=== PATIENT | female | born 2000 | race Caucasian/White ===

== ENCOUNTER 2021-09-28 18:18 | Emergency (ER) | payer MEDICAID, SELFPAY ==
[2021-09-28 18:19] VITALS: BP 124/65; PULSE 121; RESP 16; TEMP 36.8; O2SAT 100; BMI 29.2
[2021-09-28 18:32] VITALS: O2SAT 100
[2021-09-28 18:48] VITALS: BP 116/72; PULSE 94; RESP 18; O2SAT 99
--- NOTE | 2021-10-06 03:57 | ED.VIS.DYS ---
HPI History of Present Illness Chief Complaint: Shortness of Breath Informant: patient Narrative Narrative: Delayed note patient seen on September 28, 2021. Home COVID test + September 26. Symptomatic same day. Reports dyspnea congestion. Headache. No vomiting or diarrhea. No loss of taste or smell. No further complaints. [facility] Medical History Hypertension Home Medications nirmatrelvir 300 mg (150 mg x2)-ritonavir 100 mg tablet,dose pack(EUA) (Paxlovid) See Rx Instructions PO .COMPLEX #30 tabs 09/28/21 [Rx Last Taken Unknown] propranolol 10 mg tablet 10 mg PO DAILY 09/28/21 [History Last Taken Unknown] Allergy/AdvReac Type Severity Reaction Status Date / Time azithromycin AdvReac Anaphylaxis Verified 09/28/21 18:37 ranitidine [From Zantac] AdvReac Anaphylaxis Verified 09/28/21 18:37 Surgical History Hx of tonsillectomy Social History Smoking Status: Never smoker ROS ROS ED Constitutional Constitutional ED: Denies chills, fever(s) or sweats Eyes Eyes: Denies change in vision ENT ENT ED: Denies dysphagia or sore throat Cardiovascular Cardiovascular: Denies chest pain, leg edema, palpitations or racing heartbeat Respiratory/Chest Respiratory/Chest: Reports cough and dyspnea; Denies dyspnea on exertion Gastrointestinal Gastrointestinal: Denies abdominal pain, diarrhea, nausea or vomiting Genitourinary Genitourinary ED: Denies dysuria, hematuria or urinary frequency Musculoskeletal Musculoskeletal: Denies back pain, extremity pain or neck pain Integumentary Denies rash or wounds Neurologic Neurologic: Reports headache(s); Denies paresthesias or weakness EXAM Physical Exam Const Positive well nourished and well developed General Appearance ED: well developed and NAD HEENT Reports moist mucous membranes normocephalic and atraumatic Eyes PERRL, EOMs intact bilaterally and conjunctivae normal General Eye ED: Yes normal appearance of both eyes Neck no lymphadenopathy and supple General: Negative for tenderness Chest Wall Chest: Negative for tenderness Resp normal respiratory effort and normal air movement Effort and Inspection: symmetric chest movement; Negative for respiratory distress Cardio regular rate, regular rhythm and no murmurs Peripheral Pulses: pulses 2+ throughout GI normal to inspection, nondistended, normoactive bowel sounds and non-tender Palpation: Negative for guarding or rebound tenderness present Back/Spine no CVA tenderness and no thoracic nor lumbar tenderness Extremity normal to inspection General Extremety ED: Negative for edema or tenderness General Extremity: Negative for edema Neuro oriented x3 and no sensory deficits noted Sensorium / Orientation: awake and alert Skin no rashes or lesions noted and no wounds MDM MDM MDM Narrative Medical decision making narrative: Patient afebrile tachycardic on arrival normal on my exam. 100% on room air. Home COVID test 2 days ago. Symptomatic with a 5-day discussed treatment with Paxlovid for which she agrees. 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 All questions were answered. Discharge Plan Triage Chief Complaint: Shortness of Breath ED Provider: Miguel A Boykin Dx/Rx/DC Orders Clinical Impression: COVID-19 virus infection, Viral illness, Cough, Headache Instructions: Coronavirus Disease 2019 (COVID-19): Caring for Yourself or Others Prescriptions: New Paxlovid (EUA) 300 mg (150 mg x 2)-100 mg tablets,dose pack See Rx Instructions .ROUTE .COMPLEX Qty: 30 0RF Rx Instructions: take TWO 150 mg tablets of nirmatrelvir with ONE 100 mg tablet of ritonavir twice daily for 5 days No Action propranolol 10 mg Tablet 10 mg PO DAILY Primary Care Provider: Gerardo Pierre Referrals: Gerardo Pierre DO [Primary Care Provider] - 5-7 Days Activity Restrictions/Additional Instructions: Take medication as prescribed. Continue monitor pulse ox if worsening breathing with pulse ox less than 88%, return for reevaluation. Disposition Disposition: Home, Self Care Discharge Date/Time: 09/28/21 19:05
== END 2021-09-28 19:05 | disposition home or self-care (01) ==
PROVIDERS: Emergency Provider Emergency Medicine; Visit Provider Emergency Medicine
DX: U07.1 COVID-19 (principal); I10 Essential (primary) hypertension; Z79.899 Other long term (current) drug therapy
CPT/HCPCS: 99282

== ENCOUNTER 2021-11-30 16:15 | Emergency (ER) | payer MEDICAID, SELFPAY ==
[2021-11-30 16:15] VITALS: BP 134/78; PULSE 78; RESP 16; TEMP 36.6; O2SAT 98; BMI 29.4
[2021-11-30 16:32] VITALS: RESP 18
--- NOTE | 2021-11-30 16:32 | EX.ED.VIS.UR ---
HPI HPI - URI History of Present Illness Chief Complaint: Ear Problem Detail of Chief Complaint: Bilateral earaches with decreased hearing. Informant: patient Onset/Context/Timing Onset: Days Context: Gradual Onset Timing: Continuous Current Severity: Mild Maximum Severity: Mild Associated Symptoms Associated Symptoms: Negative for Myalgias, Nausea, Vomiting, Nonproductive cough or Hemoptysis Narrative Narrative: 21-year-old female with diagnosis of otitis media has been on Augmentin 875 twice daily since 27 November. Said she is not improving. Has decreased hearing. Denies sore throat. Prior tonsillectomy. Low-grade fever 100.1. No vomiting or diarrhea. Prior similar symptoms: Yes Recent Illness/Hospitalization: No ROS ROS ED ROS Narrative Earaches. Low-grade fever. Review of Systems ROS Unobtainable: Denies due to encephalopathy Constitutional Constitutional ED: Reports fever(s); Denies chills Eyes Eyes: Denies blurry vision ENT ENT ED: Reports ear pain Cardiovascular Cardiovascular: Denies chest pain Respiratory/Chest Respiratory/Chest: Denies cough or dyspnea Gastrointestinal Gastrointestinal: Denies abdominal pain Genitourinary Genitourinary ED: Denies dysuria Musculoskeletal Musculoskeletal: Denies arthralgias Integumentary Denies abscess Neurologic Neurologic: Denies headache(s) Psychiatric Psychiatric: Denies anxiety Endocrine Endocrinology: Denies cold intolerance Hematologic/Lymphatic Hematologic/Lymphatic: Denies easy bleeding Allergic/Immunologic Allergic/Immunologic ED: Denies mouth swelling or tongue swelling PFSH PFS Medical History Hypertension Home Medications nirmatrelvir 300 mg (150 mg x2)-ritonavir 100 mg tablet,dose pack(EUA) (Paxlovid) See Rx Instructions PO .COMPLEX #30 tabs 09/28/21 [Rx Last Taken Unknown] propranolol 10 mg tablet 10 mg PO DAILY 09/28/21 [History Last Taken Unknown] Allergy/AdvReac Type Severity Reaction Status Date / Time azithromycin AdvReac Anaphylaxis Verified 11/30/21 16:27 ranitidine [From Zantac] AdvReac Anaphylaxis Verified 11/30/21 16:27 Surgical History Hx of tonsillectomy Hx of tubal ligation Social History Smoking Status: Never smoker EXAM Physical Exam Narrative Exam Narrative: 21-year-old female no acute distress. Vital signs stable afebrile. 2 small children in the room. H EENT exam posterior pharynx normal. Moist and pink. TMs erythematous and dull bilaterally. No significant wax. Canals normal. No perforation. Neck nontender no lymphadenopathy. Lungs clear. Heart regular rhythm. Otherwise exam normal. Const Vital Signs: 11/30/21 16:15 Temperature 97.8 F Temperature Source Temporal Pulse Rate 78 Respiratory Rate 16 Blood Pressure 134/78 H Blood Pressure Mean 96 Pulse Ox 98 Oxygen Delivery Method Room Air Positive well nourished and well developed; Negative for obese, cachectic or contractures General Appearance ED: well developed and NAD; Negative for cachectic, contractures, cyanotic or diaphoretic Nutritional Appearance: Negative for cachectic or obese HEENT Reports moist mucous membranes; Denies dry mucous membranes normocephalic and atraumatic; Negative for scalp tenderness Face and Sinus: Negative for sinus tenderness or maxillary instability Mouth ED: No dry mucous membranes Mouth: No dry mucous membranes Teeth and Gingiva: Negative for caries Throat: posterior oropharynx normal; Negative for tonsils abnormal Eyes PERRL and EOMs intact bilaterally General Eye ED: Negative for pale conjunctiva or scleral icterus Neck no lymphadenopathy, supple, no meningeal signs and no JVD General: Negative for anterior neck swelling or lymphadenopathy Resp normal respiratory effort and clear to auscultation bilaterally Effort and Inspection: Negative for retractions Auscultation: Negative for rales, rhonchi or wheezes Cardio S1 normal heart sound, S2 normal heart sound and no murmurs Rate: regular rate Rhythm: regular rhythm GI non-tender, non-distended and no masses Inspection: Negative for abdominal distention Auscultation: normoactive bowel sounds Palpation: soft; Negative for tender or guarding Percussion: Negative for other Back/Spine no CVA tenderness and normal ROM General Back: Negative for CVA tenderness Cervical Spine: Negative for cervical spine tenderness Thoracic Spine / Upper Back: Negative for thoracic spinal tenderness Lumbar Spine / Lower Back: Negative for lumbar spinal tenderness Sacrum: Negative for tenderness Extremity normal to inspection and full ROM General Extremety ED: Negative for cyanosis or tenderness General Extremity: Negative for cyanosis Neuro oriented x3 Sensorium / Orientation: alert, oriented to person and oriented to place; Negative for oriented to time, orientation impaired, lethargic or stuporous Psych mental status grossly normal Appearance: Negative for other Attitude: No agitated Mood & Affect: Negative for depressed or anxious Skin General Skin Exam: Negative for jaundice Lesions: no lesions Rashes: no rashes Trauma: Negative for abrasion MDM MDM MDM Narrative Medical decision making narrative: 21-year-old healthy female bilateral otitis media. Has been on Augmentin 875 twice a day for 3 days. She does have ear infections there is no perforation. No cerumen impaction. I explained 's only been 3 days of give the antibiotic longer before I would change it. She is comfortable with that plan. I told her if is not improving she can call on Thursday afternoon and I could change antibiotic then. Discharge Plan Triage Chief Complaint: Ear Problem ED Provider: Matteo Candelaria Dx/Rx/DC Orders Clinical Impression: Otitis media Instructions: ED Otitis Media Antibiotic ... Prescriptions: No Action propranolol 10 mg Tablet 10 mg PO DAILY Paxlovid (EUA) 300 mg (150 mg x 2)-100 mg tablets,dose pack See Rx Instructions .ROUTE .COMPLEX Qty: 30 0RF Rx Instructions: take TWO 150 mg tablets of nirmatrelvir with ONE 100 mg tablet of ritonavir twice daily for 5 days Primary Care Provider: Care Physician,No Primary Referrals: Gerardo Pierre, DO [Non-Staff] - 3-5 Days if not improving Activity Restrictions/Additional Instructions: Tylenol and Motrin for pain. Continue your antibiotic the Augmentin as prescribed twice a day. If not improving by Thursday call the ER at [phone]. I will be working Thursday afternoon after 3. I can always call in a different prescription at that time. I would give your current antibiotic at least 2-3 more days and you should start getting improvement. As the infection gets better the pain will get better as well your hearing. Disposition Disposition: Home, Self Care
== END 2021-11-30 16:39 | disposition home or self-care (01) ==
PROVIDERS: Emergency Provider Emergency Medicine; Visit Provider Emergency Medicine
DX: H66.93 Otitis media, unspecified, bilateral (principal); I10 Essential (primary) hypertension; Z79.899 Other long term (current) drug therapy
CPT/HCPCS: 99282

== ENCOUNTER 2022-02-03 08:46 | Emergency (ER) | payer MEDICAID, SELFPAY ==
[2022-02-03 08:47] VITALS: BP 119/66; PULSE 107; RESP 16; TEMP 36.6; O2SAT 97; BMI 29.2
--- NOTE | 2022-02-03 09:15 | EDS_ITS ---
HPI History of Present Illness Chief Complaint: General Illness Informant: patient Onset/Context/Timing Onset: Days (3) Context: Gradual Onset Timing: Continuous Quality: Aching Location: Head neck back Worsened by: Movement Relieved by: Nothing Narrative Narrative: Patient presents with cough and congestion that has been getting worse over the past 3 days. Patient admits to a headache and sore throat. Patient also complains of pain in her neck and back. Patient describes it as aching. Patient states it is diffuse from her head to her lower back. Patient states it is worse with certain movements. Patient admits to general myalgias. Patient admits to a sore throat. Patient admits to nausea but denies any vomiting. Patient denies any fevers or chills. Patient states her temperature last night was 99. PFSH [facility] Medical History Hypertension Home Medications propranolol 10 mg tablet 10 mg PO DAILY 09/28/21 [History Last Taken Unknown] Allergy/AdvReac Type Severity Reaction Status Date / Time azithromycin AdvReac Anaphylaxis Verified 02/03/22 08:51 ranitidine [From Zantac] AdvReac Anaphylaxis Verified 02/03/22 08:51 Surgical History Hx of tonsillectomy Hx of tubal ligation Social History Smoking Status: Never smoker ROS ROS ED Constitutional Constitutional ED: Denies chills or fever(s) Eyes Eyes: Denies blurry vision or change in vision ENT ENT ED: Reports sore throat; Denies rhinorrhea Cardiovascular Cardiovascular: Denies chest pain or palpitations Respiratory/Chest Respiratory/Chest: Denies cough or dyspnea Gastrointestinal Gastrointestinal: Reports nausea; Denies vomiting Genitourinary Genitourinary ED: Denies dysuria or hematuria Musculoskeletal Musculoskeletal: Reports back pain and neck pain Integumentary Denies abscess or rash Neurologic Neurologic: Reports headache(s); Denies weakness Allergic/Immunologic Allergic/Immunologic ED: Denies mouth swelling or urticaria EXAM Physical Exam Const Vital Signs: 02/03/22 08:47 02/03/22 09:00 Temperature 97.9 F Temperature Source Temporal Pulse Rate 107 H Respiratory Rate 16 Respiratory Effort Normal Non-Labored Respiratory Pattern Normal Blood Pressure 119/66 Blood Pressure Mean 83 Pulse Ox 97 Oxygen Delivery Method Room Air Positive well nourished and well developed General Appearance ED: well developed and NAD HEENT Reports moist mucous membranes Neck supple and no JVD Resp normal respiratory effort and clear to auscultation bilaterally Cardio regular rate, regular rhythm and no murmurs GI normal to inspection, nondistended, normoactive bowel sounds and non-tender Palpation: soft Extremity normal to inspection General Extremety ED: Negative for edema or tenderness General Extremity: Negative for edema Neuro oriented x3, CN's II-XII intact bilaterally and no sensory deficits noted Sensorium / Orientation: alert Motor Exam: strength 5/5 throughout Psych mental status grossly normal Skin no rashes or lesions noted MDM MDM MDM Narrative Medical decision making narrative: Patient was given a dose of Tylenol here. COVID-19 rapid antigen was obtained and was negative. Influenza A and influenza B rapid antigens were obtained and were negative. Patient was advised that this is most likely a viral upper respiratory infection. Patient was instructed to drink plenty of fluids. Patient was instructed to continue Tylenol and ibuprofen as needed for pain or fevers. Patient was instructed to follow-up with her primary care physician in 5 to 7 days. Patient understood and was agreeable with the plan. All questions were answered. Discharge Plan Triage Chief Complaint: General Illness ED Provider: Ace Richardson Dx/Rx/DC Orders Clinical Impression: Viral illness Instructions: ED Viral Syndrome (Adult) Prescriptions: No Action propranolol 10 mg Tablet 10 mg PO DAILY Primary Care Provider: Care Physician,No Primary Referrals: Morro Watkins MD [Med Staff - Active Staff] - 5-7 Days Care Physician,No Primary [Primary Care Provider] - Disposition Disposition: Home, Self Care Discharge Date/Time: 02/03/22 09:57
[2022-02-03] MEDS: Acetaminophen 500 MG Tablet 1000 MG PO (09:33)
== END 2022-02-03 09:57 | disposition home or self-care (01) ==
PROVIDERS: Emergency Provider Emergency Medicine; Visit Provider Emergency Medicine
DX: B34.9 Viral infection, unspecified (principal); I10 Essential (primary) hypertension; R51.9 Headache, unspecified; R11.0 Nausea; J02.9 Acute pharyngitis, unspecified
CPT/HCPCS: 87428; 99283

== ENCOUNTER 2022-04-25 23:42 | Emergency (ER) | payer OTHER, MEDICAID, SELFPAY ==
[2022-04-25 23:42] VITALS: BP 146/95; BP 146/97; PULSE 74; PULSE 94; RESP 15; RESP 16; TEMP 37.1; O2SAT 99
[2022-04-26 00:21] VITALS: BMI 31.1
[2022-04-26 01:08] LABS: Mucous, Urine 0 SEEN /hpf (<or=2+); Red Blood Cells-Urine 0 SEEN /hpf (0-5)
[2022-04-26 01:09] LABS: Absolute Neutrophil Count 6.3 X10^3/uL (2.0-7.7); Basophil# 0.05 X10^3/uL; Basophil% 0.5 % (0-1); Eosinophil# 0.35 X10^3/uL; Eosinophils% 3.7 % (0-5); Hematocrit 40.3 % (37-47); Hemoglobin 12.8 g/dL (12.0-15.0); Lymphocyte % 18.8 % (19-41); Mean Corp Hgb Conc 31.8 g/dL (32-36); Mean Corpuscular Hgb 26.4 pg (27.0-32.0); Mean Corpuscular Volume 83.3 fL (81-99); Mean Platelet Vol. 10.4 fl (6.2-12.0); Monocyte# 1.06 X10^3/uL; Monocyte% 11.1 % (0-10); NRBC Flagged by Analyzer 0 % (0-5); Neutrophil # 6.25 X10^3/uL (2.7-7.7); Neutrophil % 65.5 % (47-70); Platelet Count 315 K/mm3 (150-450); RBC Distribution Width CV 13.9 % (11.6-14.6); RBC Distribution Width SD 42.1 fl (35.1-43.9); Red Blood Count 4.84 M/mm3 (4.2-5.4); White Blood Count 9.6 K/mm3 (4.4-11.0)
[2022-04-26 01:14] LABS: Color, Urine Yellow (Yellow); Glucose, Dipstick Normal (Normal); Ketone-Dipstick Negative (Negative); Leukocyte Esterase-Dipstick Negative /ul (Negative); Nitrite-Dipstick Negative (Negative); Occult Blood-Urine Negative /ul (Negative); Protein-Dipstick 30 mg/dl (Negative); Urine Bilirubin Dipstick Negative (Negative); Urine Clarity Clear (Clear); Urine Urobilinogen 1 mg/dl (Normal)
--- NOTE | 2022-04-26 01:15 | ED.VIS.GI ---
HPI HPI - GI History of Present Illness Chief Complaint: Abd Pain Informant: patient Abdominal Pain/Flank Pain Onset: Days Context: Gradual Onset Timing: Continuous Quality: Aching Location: Diffuse Current Severity: Mild Maximum Severity: Mild Nausea/Vomiting/Emesis GI Symptom: Negative for Nausea or Vomiting Diarrhea/Melena/Hematochezia GI Symptom: Positive for Diarrhea Onset: Days Stool Quality: Positive for Loose Severity: Mild Associated Symptoms Associated Symptoms: Negative for Dysuria, Frequency, Hematuria or Urgency Narrative Narrative: 21-year-old female G3, P2 Ab1 with having a miscarriage. Has had prior tubal ligation. Has migraine headaches, reflux chronic abdominal pain and diarrhea which is currently being worked up and evaluated by a GI specialist with the [facility]. States today she has discomfort all over. She denies nausea or vomiting. No dysuria. No vaginal bleeding. She is on control pills and has had a prior tubal ligation. States this pain has been ongoing for 2 years and is not found a specific cause. She has had a colonoscopy. She had a CAT scan done at another facility a month ago which was unremarkable. She denies any fever. Prior similar symptoms: Yes Recent Illness/Hospitalization: No PFSH PFSH Medical History Hypertension no medical history Home Medications propranolol 10 mg tablet 10 mg PO DAILY 09/28/21 [History Last Taken Unknown] dicyclomine 20 mg tablet 20 mg PO TID 04/26/22 [History Last Taken Unknown] famotidine 40 mg tablet 40 mg PO DAILY 04/26/22 [History Last Taken Unknown] mirtazapine 30 mg tablet 30 mg PO QHS 04/26/22 [History Last Taken Unknown] omeprazole 40 mg capsule,delayed release 40 mg PO DAILY 04/26/22 [History Last Taken Unknown] Allergy/AdvReac Type Severity Reaction Status Date / Time azithromycin AdvReac Anaphylaxis Verified 04/25/22 23:46 ranitidine [From Zantac] AdvReac Anaphylaxis Verified 04/25/22 23:46 Surgical History Hx of tonsillectomy Hx of tubal ligation Social History Smoking Status: Never smoker ROS ROS ED ROS Narrative Abdominal discomfort. Chronic diarrhea. Review of Systems ROS Unobtainable: Denies due to encephalopathy Constitutional Constitutional ED: Denies chills or fever(s) ENT ENT ED: Denies ear pain Cardiovascular Cardiovascular: Denies chest pain Respiratory/Chest Respiratory/Chest: Denies cough Gastrointestinal Gastrointestinal: Reports abdominal pain and diarrhea; Denies constipation, melena, nausea or vomiting Genitourinary Genitourinary ED: Denies dysuria or hematuria Musculoskeletal Musculoskeletal: Denies arthralgias Integumentary Denies abscess Neurologic Neurologic: Denies headache(s) Psychiatric Psychiatric: Denies anxiety Endocrine Endocrinology: Denies polydipsia Hematologic/Lymphatic Hematologic/Lymphatic: Denies easy bleeding Allergic/Immunologic Allergic/Immunologic ED: Denies mouth swelling or tongue swelling EXAM Physical Exam Narrative Exam Narrative: 21-year-old female no acute distress. Vital signs stable afebrile. She does not look septic or toxic. No distress. H EENT exam unremarkable. Moist membranes. Lungs clear to auscultation bilaterally. Heart regular rhythm rate about 90 no murmur. Abdomen soft nondistended normal bowel sounds no peritoneal signs. Really no localizing tenderness. No hernia or mass. No signs of obstruction. Moving all 4 extremities. Back nontender. Neurologically she is awake and alert with no focal motor deficits. Extremely benign exam. Const Vital Signs: 04/25/22 23:42 04/25/22 23:42 Temperature 98.8 F Temperature Source Temporal Pulse Rate 74 94 Respiratory Rate 15 16 Blood Pressure 146/95 H 146/97 H Blood Pressure Mean 112 113 Pulse Ox 99 99 Oxygen Delivery Method Room Air Room Air Positive well nourished, well developed and obese; Negative for cachectic, contractures or unkempt General Appearance ED: well developed and NAD; Negative for unkempt, cachectic, contractures or pallor Nutritional Appearance: obese; Negative for cachectic HEENT Reports moist mucous membranes normocephalic and atraumatic; Negative for trauma or tenderness Eyes PERRL and EOMs intact bilaterally General Eye ED: Negative for pale conjunctiva or scleral icterus Neck no lymphadenopathy, supple and no JVD General: Negative for tenderness Carotids: Negative for other Resp normal respiratory effort and clear to auscultation bilaterally Effort and Inspection: Negative for respiratory distress Auscultation: Negative for rales, rhonchi or wheezes Cardio regular rate, regular rhythm, S1 normal heart sound, S2 normal heart sound and no murmurs Rate: Negative for bradycardia or tachycardic GI non-tender, non-distended and no masses Inspection: Negative for abdominal distention Auscultation: normoactive bowel sounds Palpation: soft; Negative for tender or guarding Back/Spine no CVA tenderness General Back: Negative for CVA tenderness Cervical Spine: Negative for cervical spine tenderness Thoracic Spine / Upper Back: Negative for thoracic spinal tenderness Lumbar Spine / Lower Back: Negative for lumbar spinal tenderness Extremity full ROM General Extremety ED: Negative for edema or tenderness General Extremity: Negative for edema Neuro CN's II-XII intact bilaterally and moves all extremities Sensorium / Orientation: alert, oriented to person, oriented to place and oriented to time; Negative for orientation impaired, confused, lethargic or stuporous Motor Exam: strength 5/5 throughout Psych mental status grossly normal and thought process normal Appearance: Negative for unkempt Attitude: No agitated Mood & Affect: Negative for depressed, anxious or tearful Skin no wounds General Skin Exam: Negative for jaundice or pallor Lesions: no lesions Rashes: no rashes Trauma: Negative for abrasion Nails: Negative for discolored MDM MDM MDM Narrative Medical decision making narrative: 21-year-old female with acute on chronic abdominal pain with a history of diarrhea also. She had prior work-up she is currently seeing a GI specialist. She had a CAT scan done a month ago which was reportedly negative. I do not think she needs any imaging today. She is a very benign exam. She will be given Toradol for pain. She is not having any nausea at this time. She is not dehydrated. Repeat exam at 3:40 AM. Patient doing well. Currently pain-free. Repeat abdominal exam is completely benign. Nontender nondistended. No peritoneal signs. I went over all of her test results with her and a female friend was present in room. She will be discharged home. Follow-up with her GI doctor. Lab Data Attestation: I reviewed the patient's lab results. Lab results narrative: CBC shows white count 9.6. H&H of 12.8 and 40. Electrolytes show a potassium of 3.2. Gap of 10. BUN of 5 creatinine 0.6. Glucose 128. Urinalysis is negative. No white or red cells. No nitrates. Hepatic enzymes are normal. Lipase is normal. Urine test is negative. Labs: Laboratory Results - last 24 hr 04/26/22 04/26/22 04/26/22 00:20 00:20 00:20 WBC 9.6 RBC 4.84 Hgb 12.8 Hct 40.3 MCV 83.3 MCH 26.4 L MCHC 31.8 L RDW Std Deviation 42.1 RDW Coeff of Noé 13.9 Plt Count 315 MPV 10.4 Immature Gran % (Auto) 0.400 Neut % (Auto) 65.5 Lymph % (Auto) 18.8 L [place] % (Auto) 11.1 H Eos % (Auto) 3.7 Baso % (Auto) 0.5 Absolute Neuts (auto) 6.3 Absolute Lymphs (auto) 1.80 Nucleated RBC % 0 Sodium 143 Potassium 3.2 L Chloride 109 H Carbon Dioxide 24.0 Anion Gap 10 BUN 5 L Creatinine 0.61 Estim Creat Clear Calc 131.27 Est GFR (MDRD) Af Amer 158 Est GFR (MDRD) Non-Af 131 BUN/Creatinine Ratio 8.2 L Glucose 128 H Calcium 9.3 Total Bilirubin Direct Bilirubin AST ALT Alkaline Phosphatase Total Protein Albumin Globulin Lipase Urine Color Yellow Urine Clarity Clear Urine pH 8.0 Ur Specific [place] 1.010 Urine Protein 30 H Urine Glucose (UA) Normal Urine Ketones Negative Urine Occult Blood Negative Urine Nitrite Negative Urine Bilirubin Negative Urine Urobilinogen 1 H Ur Leukocyte Esterase Negative Urine RBC 0 SEEN Urine WBC 0-5 SEEN Ur Squamous Epith Cells 0-5 SEEN Urine Bacteria RARE Urine Mucus 0 SEEN Urine Test 04/26/22 04/26/22 04/26/22 00:20 00:20 00:20 WBC RBC Hgb Hct MCV MCH MCHC RDW Std Deviation RDW Coeff of Noé Plt Count MPV Immature Gran % (Auto) Neut % (Auto) Lymph % (Auto) [place] % (Auto) Eos % (Auto) Baso % (Auto) Absolute Neuts (auto) Absolute Lymphs (auto) Nucleated RBC % Sodium Potassium Chloride Carbon Dioxide Anion Gap BUN Creatinine Estim Creat Clear Calc Est GFR (MDRD) Af Amer Est GFR (MDRD) Non-Af BUN/Creatinine Ratio Glucose Calcium Total Bilirubin 0.30 Direct Bilirubin 0.11 AST 34 ALT 54 Alkaline Phosphatase 112 Total Protein 7.8 Albumin 3.7 Globulin 4.1 Lipase 239 Urine Color Urine Clarity Urine pH Ur Specific [place] Urine Protein Urine Glucose (UA) Urine Ketones Urine Occult Blood Urine Nitrite Urine Bilirubin Urine Urobilinogen Ur Leukocyte Esterase Urine RBC Urine WBC Ur Squamous Epith Cells Urine Bacteria Urine Mucus Urine Test Negative Discharge Plan Triage Chief Complaint: Abd Pain ED Provider: Matteo Candelaria Dx/Rx/DC Orders Clinical Impression: Abdominal pain Instructions: Abdominal Pain Prescriptions: No Action propranolol 10 mg Tablet 10 mg PO DAILY famotidine 40 mg tablet 40 mg PO DAILY Label Comments: TAKE 1 TABLET BY MOUTH ONCE DAILY omeprazole 40 mg capsule,delayed release(DR/EC) 40 mg PO DAILY Label Comments: TAKE 1 CAPSULE BY MOUTH ONCE DAILY dicyclomine 20 mg tablet 20 mg PO TID mirtazapine 30 mg tablet 30 mg PO QHS Primary Care Provider: Kinga Regan Referrals: Kinga Regan, [Primary Care Provider] - Activity Restrictions/Additional Instructions: All your labs tonight were unremarkable. Follow-up with your GI doctor to complete that evaluation. Disposition Disposition: Home, Self Care
[2022-04-26 01:23] LABS: Anion Gap 10 (5-15); BUN 5 mg/dL (7-18); BUN/Creat Ratio 8.2 RATIO (10-20); Calcium,Total 9.3 mg/dL (8.5-10.1); Chloride 109 mmol/L (98-107); Creatinine, Serum 0.61 mg/dL (0.55-1.02); EST Glomerular Filtration Rate 131 mL/min (>60); Est Glom Filt Rate - Afr Amer 158 mL/min (>60); Estimated Creatinine Clearance 131.27 ml/min; Glucose 128 mg/dL (74-106); Potassium 3.2 mmol/L (3.5-5.1); Sodium Level 143 mmol/L (136-145)
[2022-04-26] MEDS: Ketorolac 30 MG/ML Syringe IV (01:25)
[2022-04-26 01:30] LABS: Internal QC Validated? YES +Cl - CLEAR BKGD; Pregnancy, Urine Negative Negative
[2022-04-26 01:36] LABS: Bacteria RARE /hpf (None Seen); Squamous Epithelial Cells - UA 0-5 SEEN /hpf (5-10); White Blood Cells 0-5 SEEN /hpf (0-5)
[2022-04-26 01:41] LABS: AST(SGOT) 34 U/L (15-37); Alanine Aminotransfer ALT/SGPT 54 U/L (13-56); Albumin, Serum 3.7 g/dL (3.2-5.0); Alkaline Phosphatase 112 U/L (45-117); Bilirubin, Direct 0.11 mg/dL (0.00-0.30); Globulin 4.1 g/dL (2.2-4.2); Protein, Total 7.8 g/dL (6.4-8.2)
[2022-04-26 01:42] LABS: Lipase 239 U/L (73-393)
[2022-04-26 03:50] VITALS: BP 116/74; PULSE 64; RESP 18; O2SAT 100
== END 2022-04-26 03:50 | disposition home or self-care (01) ==
PROVIDERS: Emergency Provider Emergency Medicine; PCP Family Medicine; Visit Provider Emergency Medicine
DX: R10.9 Unspecified abdominal pain (principal); I10 Essential (primary) hypertension; E66.9 Obesity, unspecified; Z79.899 Other long term (current) drug therapy
CPT/HCPCS: 80048; 80076; 81001; 81025; 83690; 85025; 96374; 99283; A4216

== ENCOUNTER 2022-08-19 08:35 | Emergency (ER) | payer OTHER, MEDICAID, SELFPAY ==
[2022-08-19 08:36] VITALS: BP 125/76; PULSE 82; RESP 16; TEMP 36.1; O2SAT 99; BMI 29.6
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
[2022-08-19 09:01] VITALS: BP 121/61; BP 124/72; BP 126/64; PULSE 78; PULSE 83; PULSE 88
[2022-08-19 09:18] LABS: Absolute Lymphocyte Count 1.42 X10^3/uL (0.83-4.51); Absolute Neutrophil Count 4.7 X10^3/uL (2.0-7.7); Basophil# 0.03 X10^3/uL; Basophil% 0.4 % (0-1); Eosinophil# 0.09 X10^3/uL; Eosinophils% 1.3 % (0-5); Hematocrit 39.2 % (37-47); Hemoglobin 12.8 g/dL (12.0-15.0); Lymphocyte # 1.42 X10^3/ul (0.83-4.51); Lymphocyte % 20.7 % (19-41); Mean Corp Hgb Conc 32.7 g/dL (32-36); Mean Corpuscular Hgb 27.1 pg (27.0-32.0); Mean Corpuscular Volume 83.1 fL (81-99); Mean Platelet Vol. 9.9 fl (6.2-12.0); Monocyte# 0.61 X10^3/uL; Monocyte% 8.9 % (0-10); NRBC Flagged by Analyzer 0 % (0-5); Neutrophil # 4.67 X10^3/uL (2.7-7.7); Neutrophil % 68.3 % (47-70); Platelet Count 324 K/mm3 (150-450); RBC Distribution Width CV 13.3 % (11.6-14.6); RBC Distribution Width SD 40.5 fl (35.1-43.9); Red Blood Count 4.72 M/mm3 (4.2-5.4); White Blood Count 6.9 K/mm3 (4.4-11.0)
[2022-08-19 09:23] LABS: Internal QC Validated? YES +Cl - CLEAR BKGD; Pregnancy, Serum, hCG Quali. NEGATIVE Negative
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
== END 2022-08-19 10:13 | disposition home or self-care (01) ==
PROVIDERS: Emergency Provider Emergency Medicine; PCP Family Medicine; Visit Provider Emergency Medicine
DX: N93.8 Other specified abnormal uterine and vaginal bleeding (principal); I10 Essential (primary) hypertension; Z79.899 Other long term (current) drug therapy
CPT/HCPCS: 84703; 85025; 96360; 99283

== ENCOUNTER 2023-10-02 07:13 | Emergency (ER) | payer MEDICAID, SELFPAY ==
[2023-10-02 07:14] VITALS: BP 124/79; PULSE 80; RESP 16; TEMP 36.6; O2SAT 100; BMI 26.9
--- NOTE | 2023-10-02 07:27 | EX.ED.DYSGE1 ---
HPI History of Present Illness Chief Complaint: Other, Pain/Inj Narrative Narrative: 23-year-old female who denies significant past medical history presents with neck pain over the last 2 to 3 days. She cannot remember when it quite started, perhaps she awoke with it a few days ago, but she denies any injuries. It is gradually been getting worse. Sometimes the pain is dull and achy, and sometimes with movement she might have sharp pain that is stabbing in nature. Also, it radiates to her right trapezius. She denies any fevers or chills. She was taking Tylenol with mild relief, but now is to the point where her pain has been interrupting her sleep, so she feels tired. No other symptoms. [facility] Medical History Hypertension Home Medications ?Medication ?Instructions ?Recorded ?Last Taken ?Type propranolol 10 mg tablet 10 mg PO DAILY 09/28/21 Unknown History dicyclomine 20 mg tablet 20 mg PO TID 04/26/22 Unknown History famotidine 40 mg tablet 40 mg PO DAILY 04/26/22 Unknown History mirtazapine 30 mg tablet 30 mg PO QHS 04/26/22 Unknown History omeprazole 40 mg capsule,delayed 40 mg PO DAILY 04/26/22 Unknown History release cyclobenzaprine 10 mg tablet 10 mg PO TID PRN Muscle Spasm #20 10/02/23 Unknown Rx TABLETS naproxen 500 mg tablet (Naprosyn) 500 mg PO BID PRN pain #20 tabs 10/02/23 Unknown Rx Allergy/AdvReac Type Severity Reaction Status Date / Time azithromycin AdvReac Anaphylaxis Verified 10/02/23 07:14 ranitidine (From Zantac) AdvReac Anaphylaxis Verified 10/02/23 07:14 Surgical History Hx of tubal ligation Hx of tonsillectomy Social History Smoking Status: Never smoker ROS ROS ED ROS Narrative Constitutional: No fever, no chills. HEENT: No sore throat. Positive neck pain. No loss of vision. No rhinorrhea. Cardiovascular: No chest pain. No palpitations. Abdominal: No abdominal pain. No nausea. No vomiting. Musculoskeletal: Occasional right trapezial myalgias. No arthralgias. Neurologic: No headaches. No dizziness. No lightheadedness. Skin: No rash. No change in color. Psychiatric: No depression. No anxiety. EXAM Physical Exam Narrative Exam Narrative: Afebrile. Vital signs noted. Head normocephalic, atraumatic. HEENT examination reveals pain with movement of head to right. Mild tenderness right paraspinal musculature of the cervical area. No vertebral point tenderness or bony step-off. Cardiovascular examination regular rate and rhythm. Lungs clear to auscultation bilaterally. Abdomen soft nontender with normoactive bowel sounds. Neurological examination nonfocal, nonlateralizing, moves all extremities. Able to raise arms above head without difficulty. Musculoskeletal examination reveals no crepitance of neck, neurovascular intact right upper extremity with palpable radial pulse. Const Vital Signs: 10/02/23 07:14 Temperature 97.8 F Temperature Source Temporal Pulse Rate 80 Respiratory Rate 16 Blood Pressure 124/79 H Blood Pressure Mean 94 Pulse Ox 100 Oxygen Delivery Method Room Air MDM MDM MDM Narrative Medical decision making narrative: In the differential diagnosis is cervical strain versus cervical radiculopathy versus myofascial strain. I have low suspicion for cervical fracture as the patient's history and physical does not support this. She has had no trauma. Additionally, I have low concern for meningitis as she has full range of motion of her neck, and has not had fever or chills. As I feel she has more of a cervical strain/sprain/myofascial strain, she was written prescriptions for naproxen and for Flexeril. I have low concern for with these medications because she states that she had bilateral tubal ligation a few years ago. At this point in time, I feel she can be discharged to follow-up. She was referred to a primary care provider. Return instructions to the emergency department were reviewed. Disposition is discharged home in stable condition. History & Record Review Additional record(s) reviewed:: Prior ED visit (Noncontributory to current chief complaint) Discharge Plan Triage Chief Complaint: Other, Pain/Inj ED Provider: Brendan Bradford Dx/Rx/DC Orders Clinical Impression: Cervical strain, acute, Neck pain Instructions: ED Neck Pain, ED Neck Sprain or Strain Prescriptions: New naproxen [Naprosyn] 500 mg tablet 500 mg PO BID PRN (Reason: pain) Qty: 20 0RF cyclobenzaprine 10 mg tablet 10 mg PO TID PRN (Reason: Muscle Spasm) Qty: 20 0RF No Action propranolol 10 mg Tablet 10 mg PO DAILY famotidine 40 mg tablet 40 mg PO DAILY Patient Comments: TAKE 1 TABLET BY MOUTH ONCE DAILY omeprazole 40 mg capsule,delayed release(DR/EC) 40 mg PO DAILY Patient Comments: TAKE 1 CAPSULE BY MOUTH ONCE DAILY dicyclomine 20 mg tablet 20 mg PO TID mirtazapine 30 mg tablet 30 mg PO QHS Primary Care Provider: NOT,DEFINED Referrals: Morro Watkins MD [Med Staff - Active Staff] - 1 Week if not improving NOT,DEFINED [Primary Care Provider] - Activity Restrictions/Additional Instructions: Return with fever, increased pain, new or worsening symptoms. Print Language: Rw[place] Disposition Disposition: Home, Self Care
[2023-10-02 08:15] VITALS: BP 124/79; PULSE 80; RESP 16; TEMP 36.6; O2SAT 100
== END 2023-10-02 08:18 | disposition home or self-care (01) ==
LOC: ED 07:46
PROVIDERS: Emergency Provider Emergency Medicine; Visit Provider Emergency Medicine
DX: S16.1XXA Strain of muscle, fascia and tendon at neck level, initial encounter (principal); X58.XXXA Exposure to other specified factors, initial encounter; Y93.84 Activity, sleeping; I10 Essential (primary) hypertension; Z79.899 Other long term (current) drug therapy
CPT/HCPCS: 99282

== ENCOUNTER 2023-10-04 11:38 | Emergency (ER) | payer MEDICAID, SELFPAY ==
[2023-10-04 11:39] VITALS: BP 123/75; PULSE 91; RESP 16; TEMP 36.4; O2SAT 98; BMI 27.6
--- NOTE | 2023-10-04 11:49 | RAD_ITS ---
EXAM: XR LEFT RIBS AND AP CHEST, 3 OR MORE VIEWS CLINICAL INDICATION: pain TECHNIQUE: Frontal and oblique views of the left ribs and frontal view of the chest. COMPARISON: No relevant prior studies available. FINDINGS: LUNGS AND PLEURAL SPACES: No significant abnormality. No consolidation or edema. No pneumothorax. No effusion. HEART: No significant abnormality. Cardiac silhouette not enlarged. MEDIASTINUM: Central airways and mediastinal contour are unremarkable. BONES/JOINTS: No significant abnormality. No evidence of displaced rib fractures. RAD/Ribs Uni Min 3V w/PA Chest IMPRESSION: Negative chest and left ribs series. Electronically Signed: Nirav George DO at 12:44 EDT ,
--- NOTE | 2023-10-04 11:50 | EX.ED.DYSGE1 ---
HPI History of Present Illness Chief Complaint: Complaint Narrative Narrative: 23-year-old female who denies significant past medical history presents with multiple complaints but mainly left-sided rib pain and urinary frequency and small amounts over the last 2 days. Of note, she was seen in the emergency department 2 days ago for neck pain. She states her symptoms began after being seen in the emergency department. No fevers or chills. She denies any trauma for her left-sided rib pain. No fevers or chills, no cough. Pain is worse with movement. She was taking Tylenol with relief, but states that stopped working. She went to urgent care because she thought she had a UTI, but they sent her here for evaluation of her rib pain as she states that she has not had a bowel movement since yesterday. [facility] Medical History Hypertension Home Medications ?Medication ?Instructions ?Recorded ?Last Taken ?Type propranolol 10 mg tablet 10 mg PO DAILY 09/28/21 Unknown History dicyclomine 20 mg tablet 20 mg PO TID 04/26/22 Unknown History famotidine 40 mg tablet 40 mg PO DAILY 04/26/22 Unknown History mirtazapine 30 mg tablet 30 mg PO QHS 04/26/22 Unknown History omeprazole 40 mg capsule,delayed 40 mg PO DAILY 04/26/22 Unknown History release cyclobenzaprine 10 mg tablet 10 mg PO TID PRN Muscle Spasm #20 10/02/23 Unknown Rx TABLETS naproxen 500 mg tablet (Naprosyn) 500 mg PO BID PRN pain #20 tabs 10/02/23 Unknown Rx cephalexin 500 mg capsule 500 mg PO BID #14 caps 10/04/23 Unknown Rx Allergy/AdvReac Type Severity Reaction Status Date / Time azithromycin AdvReac Anaphylaxis Verified 10/04/23 11:39 ranitidine (From Zantac) AdvReac Anaphylaxis Verified 10/04/23 11:39 Surgical History Hx of tubal ligation Hx of tonsillectomy Social History Smoking Status: Never smoker ROS ROS ED ROS Narrative Constitutional: No fever, no chills. HEENT: No sore throat. No neck pain. No loss of vision. No rhinorrhea. Cardiovascular: Positive left-sided rib pain worse with movement/chest pain. No palpitations. No pedal edema. Respiratory: No cough, no shortness of breath. Abdominal: No abdominal pain. No nausea. No vomiting. Positive constipation. Genitourinary: Positive urinary frequency, burning with urination/dysuria. Dribbling a small amount. No hematuria. Musculoskeletal: No myalgias. No arthralgias. Neurologic: No headaches. No dizziness. No lightheadedness. Skin: No rash. No change in color. Psychiatric: No depression. No anxiety. EXAM Physical Exam Const Vital Signs: 10/04/23 11:39 Temperature 97.5 F L Temperature Source Temporal Pulse Rate 91 Respiratory Rate 16 Blood Pressure 123/75 H Blood Pressure Mean 91 Pulse Ox 98 Oxygen Delivery Method Room Air MDM MDM MDM Narrative Medical decision making narrative: In the differential diagnosis is thoracic strain versus rib fracture. She denies any trauma to the area. Her pain is reproducible and worse with movement so I have low suspicion for ACS and I do not feel that EKG is warranted. Rib x-rays on the left where she is tender without crepitance will be obtained to rule out fracture and to look for underlying pathology such as pneumothorax or pneumonia. History and physical does not support these latter 2 diagnoses. Regarding her urinary frequency, concern would be for a UTI. Although the triage note states she was sent here for possible kidney stone, this is lower on the differential. CT imaging will be deferred until urinalysis returns. Urinalysis does show squamous epithelial cells but there are 25-50 WBCs. Serum is negative. Review of her laboratory work otherwise shows normal white count of 7.9 with hemoglobin stable at 10.8, normal platelet count of 327, electrolyte panel is grossly unremarkable except for chloride of 110, BUN of 9 and creatinine 0.61. At this point in time, as I have individually interpreted her rib and chest x-ray, there is no evidence of fracture or pneumothorax or pneumonia. I reviewed the radiology report as well which confirms my independent interpretation, I feel that she probably has more of a thoracic wall strain as her pain is reproducible. I have low suspicion for pulmonary embolism and do not feel that further workup for that is indicated. She was treated with her first dose of Keflex here in the emergency department and prescription written to take 500 mg twice a day for the next week. I had already written her prescriptions for naproxen and Flexeril to take for analgesia for her neck pain. She has not picked them up from the pharmacy. I called in a prescription to the pharmacy where these 2 prescriptions are already filled. I feel she can be discharged to follow-up with her primary care provider. Return instructions were reviewed. Disposition is discharged home in stable condition. History & Record Review Discussion w/independent historian: Patient Additional record(s) reviewed:: Prior ED visit Lab Data Attestation: I reviewed the patient's lab results. Labs: Laboratory Results - last 24 hr 10/04/23 12:07 WBC 7.9 RBC 4.10 L Hgb 10.8 L Hct 34.3 L MCV 83.7 MCH 26.3 L MCHC 31.5 L RDW Std Deviation 44.1 H RDW Coeff of Noé 14.3 Plt Count 327 MPV 9.9 Immature Gran % (Auto) 0.300 Neut % (Auto) 66.4 Lymph % (Auto) 23.1 Jack % (Auto) 8.6 Eos % (Auto) 1.1 Baso % (Auto) 0.5 Absolute Neuts (auto) 5.2 Absolute Lymphs (auto) 1.82 Nucleated RBC % 0 Sodium 138 Potassium 3.7 Chloride 110 H Carbon Dioxide 21.0 Anion Gap 7 BUN 9 Creatinine 0.61 Estim Creat Clear Calc 145.56 Est GFR (MDRD) Af Amer 157 Est GFR (MDRD) Non-Af 130 BUN/Creatinine Ratio 14.8 Glucose 90 Calcium 9.4 Serum , Qual NEGATIVE Urine Color Yellow Urine Clarity Clear Urine pH 6.0 Ur Specific [place] 1.020 Urine Protein 30 H Urine Glucose (UA) Normal Urine Ketones Negative Urine Occult Blood 10 H Urine Nitrite Negative Urine Bilirubin Negative Urine Urobilinogen Normal Ur Leukocyte Esterase 100 H Urine RBC 0 SEEN Urine WBC 25-50 SEEN Ur Squamous Epith Cells 5-10 SEEN Urine Bacteria 2+ Urine Mucus 2+ Radiography Diagnostic Testing: Clinical Impression(s) from Imaging Studies Ribs w/Chest X-Ray 10/04/23 11:49 IMPRESSION: Negative chest and left ribs series. Electronically Signed: Nirav George DO at 12:44 EDT , Discharge Plan Triage Chief Complaint: Complaint ED Provider: Brendan Bradford Dx/Rx/DC Orders Clinical Impression: Rib pain on left side, UTI (urinary tract infection) Instructions: ED UTIs Women, ED Chest Wall Strain Prescriptions: New cephalexin 500 mg capsule 500 mg PO BID Qty: 14 0RF No Action propranolol 10 mg Tablet 10 mg PO DAILY famotidine 40 mg tablet 40 mg PO DAILY Patient Comments: TAKE 1 TABLET BY MOUTH ONCE DAILY omeprazole 40 mg capsule,delayed release(DR/EC) 40 mg PO DAILY Patient Comments: TAKE 1 CAPSULE BY MOUTH ONCE DAILY dicyclomine 20 mg tablet 20 mg PO TID mirtazapine 30 mg tablet 30 mg PO QHS naproxen [Naprosyn] 500 mg tablet 500 mg PO BID PRN (Reason: pain) Qty: 20 0RF cyclobenzaprine 10 mg tablet 10 mg PO TID PRN (Reason: Muscle Spasm) Qty: 20 0RF Primary Care Provider: Care Physician,No Primary Referrals: Chet Mendenhall MD [Med Staff - Coag[facility] [employer]] - 3-5 Days if not improving Care Physician,No Primary [Primary Care Provider] - Activity Restrictions/Additional Instructions: Take the naproxen and Flexeril that were already prescribed for you. Take all antibiotics in the course of therapy. Follow-up with primary care in 3 to 5 days. Return with increased pain, new or worsening symptoms. Print Language: Welsh Disposition Disposition: Home, Self Care
[2023-10-04] MEDS: 0.9% Normal Saline (1000mL) 1,000 ML 999 ML IV (12:10)
[2023-10-04 12:11] LABS: Red Blood Cells-Urine 0 SEEN /hpf (0-5)
[2023-10-04 12:13] LABS: Color, Urine Yellow (Yellow); Glucose, Dipstick Normal (Normal); Ketone-Dipstick Negative (Negative); Leukocyte Esterase-Dipstick 100 /ul (Negative); Nitrite-Dipstick Negative (Negative); Occult Blood-Urine 10 /ul (Negative); Protein-Dipstick 30 mg/dl (Negative); Urine Bilirubin Dipstick Negative (Negative); Urine Clarity Clear (Clear); Urine Urobilinogen Normal (Normal)
[2023-10-04 12:15] LABS: Absolute Lymphocyte Count 1.82 X10^3/uL (0.83-4.51); Absolute Neutrophil Count 5.2 X10^3/uL (2.0-7.7); Basophil# 0.04 X10^3/uL; Basophil% 0.5 % (0-1); Eosinophil# 0.09 X10^3/uL; Eosinophils% 1.1 % (0-5); Hematocrit 34.3 % (37-47); Hemoglobin 10.8 g/dL (12.0-15.0); Lymphocyte # 1.82 X10^3/ul (0.83-4.51); Lymphocyte % 23.1 % (19-41); Mean Corp Hgb Conc 31.5 g/dL (32-36); Mean Corpuscular Hgb 26.3 pg (27.0-32.0); Mean Corpuscular Volume 83.7 fL (81-99); Mean Platelet Vol. 9.9 fl (6.2-12.0); Monocyte# 0.68 X10^3/uL; Monocyte% 8.6 % (0-10); NRBC Flagged by Analyzer 0 % (0-5); Neutrophil # 5.22 X10^3/uL (2.7-7.7); Neutrophil % 66.4 % (47-70); Platelet Count 327 K/mm3 (150-450); RBC Distribution Width CV 14.3 % (11.6-14.6); RBC Distribution Width SD 44.1 fl (35.1-43.9); White Blood Count 7.9 K/mm3 (4.4-11.0)
[2023-10-04 12:30] LABS: Bacteria 2+ /hpf (None Seen); Mucous, Urine 2+ /hpf (<or=2+); Squamous Epithelial Cells - UA 5-10 SEEN /hpf (5-10); White Blood Cells 25-50 SEEN /hpf (0-5)
[2023-10-04 12:33] LABS: Internal QC Validated? YES +Cl - CLEAR BKGD; Pregnancy, Serum, hCG Quali. NEGATIVE Negative
[2023-10-04 12:35] LABS: Anion Gap 7 (5-15); BUN 9 mg/dL (7-18); BUN/Creat Ratio 14.8 RATIO (10-20); Calcium,Total 9.4 mg/dL (8.5-10.1); Chloride 110 mmol/L (98-107); Creatinine, Serum 0.61 mg/dL (0.55-1.02); EST Glomerular Filtration Rate 130 mL/min (>60); Est Glom Filt Rate - Afr Amer 157 mL/min (>60); Estimated Creatinine Clearance 145.56 ml/min; Glucose 90 mg/dL (74-106); Potassium 3.7 mmol/L (3.5-5.1); Sodium Level 138 mmol/L (136-145)
[2023-10-04 13:33] VITALS: BP 123/75; PULSE 91; RESP 16; TEMP 36.4; O2SAT 98
[2023-10-04] MEDS: Cephalexin 250 MG Capsule 500 MG PO (13:37)
== END 2023-10-04 13:39 | disposition home or self-care (01) ==
PROVIDERS: Emergency Provider Emergency Medicine; Visit Provider Emergency Medicine
DX: N39.0 Urinary tract infection, site not specified (principal); R07.81 Pleurodynia; I10 Essential (primary) hypertension; Z79.899 Other long term (current) drug therapy
CPT/HCPCS: 71101; 80048; 81001; 84703; 85025; 99283; J7030; A4216

== ENCOUNTER 2024-02-27 17:37 | Emergency (ER) | payer MEDICAID, SELFPAY ==
[2024-02-27 17:38] VITALS: BP 103/70; PULSE 73; RESP 18; TEMP 37; O2SAT 100; BMI 25.0
[2024-02-27 18:03] LABS: Absolute Neutrophil Count 5.5 X10^3/uL (2.0-7.7); Basophil# 0.04 X10^3/uL; Basophil% 0.5 % (0-1); Eosinophil# 0.07 X10^3/uL; Eosinophils% 0.8 % (0-5); Hematocrit 39.5 % (37-47); Hemoglobin 12.9 g/dL (12.0-15.0); Lymphocyte % 25.3 % (19-41); Mean Corp Hgb Conc 32.7 g/dL (32-36); Mean Corpuscular Hgb 27.2 pg (27.0-32.0); Mean Corpuscular Volume 83.2 fL (81-99); Mean Platelet Vol. 10.1 fl (6.2-12.0); Monocyte% 7.2 % (0-10); NRBC Flagged by Analyzer 0 % (0-5); Neutrophil # 5.45 X10^3/uL (2.7-7.7); Neutrophil % 65.8 % (47-70); Platelet Count 296 K/mm3 (150-450); RBC Distribution Width CV 14.3 % (11.6-14.6); RBC Distribution Width SD 43.1 fl (35.1-43.9); Red Blood Count 4.75 M/mm3 (4.2-5.4); White Blood Count 8.3 K/mm3 (4.4-11.0)
[2024-02-27 18:16] LABS: Internal QC Validated? YES +Cl - CLEAR BKGD; Pregnancy, Serum, hCG Quali. NEGATIVE Negative
[2024-02-27 18:24] LABS: AST(SGOT) 12 U/L (15-37); Alanine Aminotransfer ALT/SGPT 21 U/L (13-56); Albumin, Serum 4.2 g/dL (3.2-5.0); Alkaline Phosphatase 94 U/L (45-117); Anion Gap 2 (5-15); BUN 9 mg/dL (7-18); Chloride 104 mmol/L (98-107); Creatinine, Serum 0.69 mg/dL (0.55-1.02); EST Glomerular Filtration Rate 111 mL/min (>60); Est Glom Filt Rate - Afr Amer 135 mL/min (>60); Globulin 4.1 g/dL (2.2-4.2); Glucose 101 mg/dL (74-106); Potassium 3.8 mmol/L (3.5-5.1); Protein, Total 8.3 g/dL (6.4-8.2); Sodium Level 136 mmol/L (136-145)
[2024-02-27 19:01] LABS: Mucous, Urine 0 SEEN /hpf (<or=2+)
[2024-02-27 19:07] LABS: Color, Urine Yellow (Yellow); Glucose, Dipstick Normal (Normal); Ketone-Dipstick Negative (Negative); Leukocyte Esterase-Dipstick 500 /ul (Negative); Nitrite-Dipstick Positive (Negative); Occult Blood-Urine Negative /ul (Negative); Protein-Dipstick Negative (Negative); Specific Gravity, Urine 1.005 (1.002-1.030); Urine Bilirubin Dipstick Negative (Negative); Urine Clarity Clear (Clear); Urine Urobilinogen Normal (Normal)
[2024-02-27 19:20] LABS: Bacteria 2+ /hpf (None Seen); Squamous Epithelial Cells - UA 0-5 SEEN /hpf (5-10)
[2024-02-27 19:21] LABS: Red Blood Cells-Urine 0-5 SEEN /hpf (0-5); White Blood Cells 10-25 SEEN /hpf (0-5)
[2024-02-27 19:23] LABS: Transitional Epithelial - Ur 0-5 SEEN /hpf (0-5)
--- NOTE | 2024-02-27 20:24 | ED.RN ---
pt requesting to have IV removed. states she is feeling impatient. encouraged to call PCP to be checked for UTI.
== END 2024-02-27 20:25 | disposition left against medical advice (07) ==
LOC: ED 20:27
DX: R11.0 Nausea (principal)
CPT/HCPCS: 80053; 81001; 84703; 85025; 87077; 87086; 87088; 87186